=== PATIENT | female | born 1955 | race Caucasian/White ===

== ENCOUNTER 2016-08-09 11:04 | Emergency (ER) | payer OTHER ==
[~2016-08-09] VITALS: Ht 157.5 cm; Wt 68.0 kg
[~2016-08-09 11:04] MED LIST: ALPRAZOLAM0.5 M3 PO; ALPRAZOLAM0.5 M4 PO; ATORVASTATIN CA10 M1 PO; BENZONATATE100 MG PO; COMBIVENT1 ARO INH; FLOMAX(MONOGRA0.4 MG PO; GUAIATUSSIN AC PO; LOTRISONE CREAM45 GM TOP; MOTRIN 600 MG600 MG PO; PERCOCET 325 MG1 TA2 PO; PREDNISONE10 MG PO; PROAIR HFA0.09 MG/Ac PO; VENLAFAXINE H37.5 M1 PO; ZOFRAN4 M1 SL
[2016-08-09 11:08] VITALS: BP 160/87
--- NOTE | 2016-08-09 12:39 | ED INFLUENZA/URI COMPLAINT ---
See Addendum History of Present Illness General Chief Complaint: Upper Respiratory Sx/Fever Stated Complaint: BODY ACHES,FEVER,CHEST CONGESTION,COUGH Source: patient Exam Limitations: no limitations Vital Signs & Intake/Output Vital Signs & Intake/Output Vital Signs Date Time Temp Pulse Resp B/P Pulse O2 O2 Flow FiO2 Ox Delivery Rate 08/09 1219 Room Air Room Air 08/09 1108 96.4 99 18 160/87 97 Room Air Allergies Coded Allergies: NO KNOWN ALLERGIES (04/22/14) Reconcile Medications Albuterol Sulfate (Proair Hfa) 90 MCG HFA.AER.AD 2 PUF INH Q4-6 PRN PRN wheezing Alprazolam 0.5 MG TABLET 1 TAB PO DAILY NEEDED ANXIETY (Reported) Atorvastatin Calcium 10 MG TABLET 1 TAB PO DAILY CHOLESTEROL (Reported) Azithromycin (Zithromax) 250 MG TABLET 1 DP PO AD bronchitis 2 the first day followed by 1 for days 2-5 Prednisone 20 MG TABLET 2 TAB PO DAILY wheezing Triage Note: 61 Y/O FEMALE C/O URI SYMPTOMS X 3 WEEKS; TOOK 4 ADVIL AT 0700 WITH NO CHANGE IN SYMPTOMS. STATES COUGH IS NON PRODUCTIVE. AFEBRILE. Triage Nurses Notes Reviewed? yes HPI: 61 yo female with hx of pna x6, tachycardia at baseline, here with co productive cough w clear to yelliow sputum for 3 weeks. co gen weakness, sore throat, body aches. no nv, no cp, no nasal congestion. tx with otc meds with minimal relief. + smoker, 50+ pack year hx. co erickson. no fever or chills. sx are moderate (DAWOOD WILKINSON) Past History Travel History Traveled to [place] past 21 day No Medical History Any Pertinent Medical History? see below for history Neurological: NONE EENT: NONE Cardiovascular: hyperlipidemia Respiratory: bronchitis Gastrointestinal: NONE Hepatic: NONE Renal: KIDNEY STONES Musculoskeletal: chronic back pain Psychiatric: anxiety Endocrine: NONE Blood Disorders: NONE Cancer(s): NONE COMMERCIAL ROOFER/Reproductive: NONE Surgical History Surgical History: non-contributory Psychosocial History What is your primary language [place] Citizen Tobacco Use: Current Daily Use Daily Tobacco Use Amount/Type: => 5 Cigarettes daily Family History Hx Contributory? No (DAWOOD WILKINSON) Review of Systems Review of Systems Constitutional: Reports: see HPI. EENTM: Reports: no symptoms. Respiratory: Reports: see HPI. Cardiovascular: Reports: no symptoms. GI: Reports: no symptoms. Genitourinary: Reports: no symptoms. Musculoskeletal: Reports: no symptoms. Skin: Reports: no symptoms. Neurological/Psychological: Reports: no symptoms. Hematologic/Endocrine: Reports: no symptoms. Immunologic/Allergic: Reports: no symptoms. All Other Systems: Reviewed and Negative (DAWOOD WILKINSON) Physical Exam Physical Exam Ears, Nose, Throat: normal ENT inspection, moist mucous membrane, hearing grossly normal, Tympanic normal (L - POST SURGICAL CHANGES), pharynx normal Respiratory: normal breath sounds, chest non-tender, no respiratory distress, respiratory distress Cardiovascular: regular rate/rhythm Comments: Well-developed well-nourished no apparent distress. HEENT: Atraumatic, extraocular motion intact Neck: Supple, no lymphadenopathy Back: Nontender Respiratory: No respiratory distress Extremities: No edema, full range of motion Neuro: Alert and oriented x3 Psych: Mood affect normal, normal memory normal judgment. Skin: Warm and dry, no rash on exposed skin Core Measures Severe Sepsis Present: No Septic Shock Present: No (DAWOOD WILKINSON) Progress Differential Diagnosis: influenza, meningitis, neutropenia, otitis, pneumonia, pharyngitis, sinusitis Plan of Care: Orders Procedure Date/time Status XRY-CHEST XRAY, PA AND LATERAL 08/09 1239 Active Diagnostic Imaging: Viewed by Me: Radiology Read. Discussed w/RAD: Radiology Read. CXR Impression: PATIENT: FARRUKH VILLALTA PRESENT AGE: 61 PATIENT ACCOUNT NO: [id number] : 56 LOCATION: [facility] ORDERING PHYSICIAN: DAWOOD ALEJANDRE SERVICE DATE: 08/09/16 EXAM TYPE: RAD - XRY-CHEST XRAY, PA AND LATERAL EXAMINATION: XR CHEST CLINICAL INFORMATION: Cough. Sputum. Smoker. Evaluate for pneumonia. COMPARISON: Chest x-ray of 04/22/2014. TECHNIQUE : 2 views of the chest were obtained. FINDINGS: The cardiomediastinal silhouette is normal. The lungs are normally and symmetrically expanded. The lungs are clear. No pleural effusions or pneumothorax. The osseous structures and upper abdomen are unremarkable. IMPRESSION: No radiographic evidence of pneumonia. No acute pulmonary process. DICTATED BY: CORBY FANG MD DATE/TIME DICTATED:08/09/161336 DOG BEHAVIORIST:KATELIN DATE/TIME TRANSCRIBED:08/09/16 Initial ED EKG: none (DAWOOD WILKINSON) Departure Departure Disposition: HOME OR SELF CARE Condition: Stable Clinical Impression Primary Impression: Bronchitis Referrals: JILL MCFARLAND (PCP/Family) Additional Instructions: Take antibiotics for your infection as directed. prednisone as directed. albuterol inhailer for wheezing Use [id number] multisystem cold medication as needed. Motrin and Tylenol as needed for fever. Drink plenty of fluids. Return or follow-up with your doctor if not better in the next 3-5 days or if you're having continued worsening fevers, nausea, vomiting, shortness of breath, abdominal pain, difficulty swallowing or drinking or worsening flulike illness. Departure Forms: Customer Survey General Discharge Information Prescriptions: Current Visit Scripts Azithromycin (Zithromax) 1 DP PO AD #6 TAB 2 the first day followed by 1 for days 2-5 Albuterol Sulfate (Proair Hfa) 2 PUF INH Q4-6 PRN PRN wheezing #1 INHAL Prednisone 2 TAB PO DAILY #10 TAB (DAWOOD WILKINSON) PA/HOTEL CONTROLLER Co-Sign Statement Statement: ED Attending supervision documentation- [] I saw and evaluated the patient. I have also reviewed all the pertinent lab results and diagnostic results. I agree with the findings and the plan of care as documented in the PA's/HOTEL CONTROLLER's documentation. [X] I have reviewed the ED Record and agree with the PA's/HOTEL CONTROLLER's documentation. [] Additions or exceptions (if any) to the PAs/HOTEL CONTROLLER's note and plan are summarized below: [] (ROMAN PRYOR DO
--- NOTE | 2016-08-09 13:43 | RADIOLOGY REPORT ---
EXAMINATION: XR CHEST CLINICAL INFORMATION: Cough. Sputum. Smoker. Evaluate for pneumonia. COMPARISON: Chest x-ray of 04/22/2014. TECHNIQUE: 2 views of the chest were obtained. FINDINGS: The cardiomediastinal silhouette is normal. The lungs are normally and symmetrically expanded. The lungs are clear. No pleural effusions or pneumothorax. The osseous structures and upper abdomen are unremarkable. IMPRESSION: No radiographic evidence of pneumonia. No acute pulmonary process.
[2016-08-09] MEDS ORDERED: PREDNISONE20 M1 PO (13:59)
[2016-08-09] MEDS ORDERED: ZITHROMAX250 M2 PO (13:59)
[2016-08-09] MEDS ORDERED: PROAIR HFA8.5 GM INH (13:59)
== END 2016-08-09 14:04 ==
LOC: ERH 11:04
DX: J40 Bronchitis, not specified as acute or chronic (principal); Z72.0 Tobacco use